=== PATIENT | female | born 1950 | race Caucasian/White ===

== ENCOUNTER → 2016-05-29 | Outpatient (CLI) | payer OTHER ==
[~2016-05-29] VITALS: Ht 157.5 cm; Wt 88.5 kg
[2016-05-29 11:07] LABS: HEMOGLOBIN 9.4 gm/dl (12.3-15.3); RED BLOOD COUNT 2.84 M/UL (4.00-5.10)
[2016-05-29 11:16] LABS: WHITE BLOOD COUNT 10.9 K/UL (4.5-11.0)
[2016-05-29 15:27] LABS: BODY FLUID SOURCE ASCITES
== END ==
LOC: OPSV 10:04 → US 11:00
PROVIDERS: Internal Medicine Gastroenterology
PROC: 0W9G3ZZ Drainage of Peritoneal Cavity, Percutaneous Approach (ICD-10-PCS; principal; 2016-05-29)
DX: K74.60 Unspecified cirrhosis of liver (principal); R18.8 Other ascites
CPT/HCPCS: 80053; 85025; 85610; 89051; 96365; P9047

== ENCOUNTER → 2016-06-05 | Outpatient (CLI) | payer OTHER ==
[~2016-06-05] VITALS: Ht 157.5 cm; Wt 88.5 kg
[2016-06-05 14:32] LABS: BODY FLUID SOURCE PERITONEAL
== END ==
LOC: US 08:54 → OPSV 08:54 → US 10:00
PROVIDERS: Internal Medicine Gastroenterology
PROC: 0W9G3ZZ Drainage of Peritoneal Cavity, Percutaneous Approach (ICD-10-PCS; principal; 2016-06-05)
DX: K74.60 Unspecified cirrhosis of liver (principal); R18.8 Other ascites
CPT/HCPCS: 89051; 96365; P9047